=== PATIENT | male | born 1945 | race Caucasian/White ===

== ENCOUNTER 2016-06-30 15:50 | Inpatient (IN) | payer MEDICARE ==
[2016-07-04 02:24] VITALS: BMI 36.8
[2016-07-04] MEDS ORDERED: traMADol HCl 50 MG TAB PO PRN (07:10)
[2016-07-04] MEDS ORDERED: FLU VACC TS2016-17(65YR +) 0.5 ML SYRINGE IM ONE (09:00)
[2016-07-04] MEDS: Multivitamin W/ Minerals 1 TAB PO SCH (09:12)
[2016-07-04] MEDS: Gabapentin 300 MG CAP PO SCH ×3 (09:13→21:30)
[2016-07-04] MEDS: NIFEdipine XL 30 MG TAB PO SCH (09:13)
[2016-07-04] MEDS: Ipratropium Bromide 0.03% Nasal Spray EA NARE SCH ×2 (09:23→21:38)
[2016-07-04] MEDS: traMADol HCl 50 MG TAB PO PRN (11:36)
[2016-07-04] MEDS: Acetaminophen 325 MG TAB PO SCH (21:29)
[2016-07-04] MEDS: Atorvastatin Calcium 40 MG TAB PO SCH (21:29)
[2016-07-05] MEDS: Enoxaparin Sodium 30 MG/0.3 ML SYRINGE SC SCH (05:16)
[2016-07-05] MEDS: NIFEdipine XL 30 MG TAB PO SCH (09:31)
[2016-07-05] MEDS: Multivitamin W/ Minerals 1 TAB PO SCH (09:32)
[2016-07-05] MEDS: Acetaminophen 325 MG TAB PO SCH ×2 (09:32→20:37)
[2016-07-05] MEDS: Gabapentin 300 MG CAP PO SCH ×3 (09:32→20:37)
[2016-07-05] MEDS ORDERED: Fluticasone Propionate Nasal Spray 16 gm Bottle NASAL SCH (13:00)
[2016-07-05] MEDS: Ipratropium Bromide 0.03% Nasal Spray EA NARE SCH (13:15)
[2016-07-05] MEDS ORDERED: Polyethylene Glycol OPTH DROP 15 ML BOT EA EYE PRN (17:15)
[2016-07-05] MEDS: Atorvastatin Calcium 40 MG TAB PO SCH (20:37)
[2016-07-05] MEDS: traMADol HCl 50 MG TAB PO PRN (20:38)
[2016-07-05] MEDS: Artificial Tear Sol 15 ML BOT EA EYE PRN (20:53)
[2016-07-06] MEDS: Enoxaparin Sodium 30 MG/0.3 ML SYRINGE SC SCH (05:30)
[2016-07-06] MEDS: Fluticasone Propionate Nasal Spray 16 gm Bottle NASAL SCH (09:48)
[2016-07-06] MEDS: NIFEdipine XL 30 MG TAB PO SCH (09:49)
[2016-07-06] MEDS: Multivitamin W/ Minerals 1 TAB PO SCH (09:50)
[2016-07-06] MEDS: Gabapentin 300 MG CAP PO SCH ×3 (09:50→20:57)
[2016-07-06] MEDS: Acetaminophen 325 MG TAB PO SCH ×2 (09:51→20:56)
[2016-07-06] MEDS: Cephalexin 250 MG CAP PO SCH (20:56)
[2016-07-06] MEDS: Atorvastatin Calcium 40 MG TAB PO SCH (20:56)
[2016-07-06] MEDS: traMADol HCl 50 MG TAB PO PRN (21:02)
[2016-07-06] MEDS: SYSTANE EA EYE PRN (21:06)
[2016-07-07] MEDS: Enoxaparin Sodium 30 MG/0.3 ML SYRINGE SC SCH (05:58)
[2016-07-07] MEDS: Artificial Tear Sol 15 ML BOT EA EYE PRN ×2 (09:30→21:08)
[2016-07-07] MEDS: Fluticasone Propionate Nasal Spray 16 gm Bottle NASAL SCH (09:32)
[2016-07-07] MEDS: traMADol HCl 50 MG TAB PO PRN ×3 (09:33→20:57)
[2016-07-07] MEDS: Multivitamin W/ Minerals 1 TAB PO SCH (09:34)
[2016-07-07] MEDS: Acetaminophen 325 MG TAB PO SCH ×2 (09:34→20:56)
[2016-07-07] MEDS: NIFEdipine XL 30 MG TAB PO SCH (09:34)
[2016-07-07] MEDS: Cephalexin 250 MG CAP PO SCH ×2 (09:35→20:56)
[2016-07-07] MEDS: Gabapentin 300 MG CAP PO SCH ×3 (09:36→20:57)
[2016-07-07] MEDS: Atorvastatin Calcium 40 MG TAB PO SCH (20:58)
[2016-07-07] MEDS: SYSTANE EA EYE PRN (20:58)
[2016-07-08] MEDS: Acetaminophen 325 MG TAB PO SCH ×2 (08:39→21:16)
[2016-07-08] MEDS: NIFEdipine XL 30 MG TAB PO SCH (08:39)
[2016-07-08] MEDS: Cephalexin 250 MG CAP PO SCH ×2 (08:42→21:16)
[2016-07-08] MEDS: Gabapentin 300 MG CAP PO SCH ×3 (08:42→21:16)
[2016-07-08] MEDS: Fluticasone Propionate Nasal Spray 16 gm Bottle NASAL SCH (08:43)
[2016-07-08] MEDS: Multivitamin W/ Minerals 1 TAB PO SCH (08:43)
[2016-07-08] MEDS: ALBUTEROL INH PRN (08:50)
[2016-07-08] MEDS: traMADol HCl 50 MG TAB PO PRN ×2 (08:54→21:15)
[2016-07-08] MEDS: Artificial Tear Sol 15 ML BOT EA EYE PRN (14:40)
[2016-07-08] MEDS ORDERED: Hydrocortisone Acetate 25 MG Suppository PR PRN (17:48)
[2016-07-08 19:21] LABS: #Basophils 0.1 thou/uL (0.0-0.2); #Eosinphils 0.2 thou/uL (0.0-0.7); #Lymphocytes 1.1 thou/uL (1.20-3.40); #Monocytes 0.5 thou/uL (0.11-0.59); #Neutrophils 4.6 thou/uL (1.40-6.50); %Basophils 1.3 % (0.0-1.0); %Eosinophils 2.4 % (0.0-10.0); %Monocytes 7.7 % (0.0-10.0); Hematocrit 39.9 % (42.0-52.0); Mean Platelet Volume 7.4 fL (7.4-10.4); Red Blood Cell (RBC) Count 4.58 mill/uL (4.70-6.10); White Blood Cell (WBC) Count 6.4 thou/uL (4.8-10.8)
[2016-07-08] MEDS: Atorvastatin Calcium 40 MG TAB PO SCH (21:16)
[2016-07-08] MEDS: SYSTANE EA EYE PRN (21:22)
[2016-07-09] MEDS: Cephalexin 250 MG CAP PO SCH ×2 (10:24→21:37)
[2016-07-09] MEDS: Acetaminophen 325 MG TAB PO SCH ×2 (10:25→21:37)
[2016-07-09] MEDS: traMADol HCl 50 MG TAB PO PRN ×2 (10:26→17:22)
[2016-07-09] MEDS: NIFEdipine XL 30 MG TAB PO SCH (10:27)
[2016-07-09] MEDS: Multivitamin W/ Minerals 1 TAB PO SCH (10:27)
[2016-07-09] MEDS: Gabapentin 300 MG CAP PO SCH ×3 (10:28→21:38)
[2016-07-09] MEDS: Fluticasone Propionate Nasal Spray 16 gm Bottle NASAL SCH (10:30)
[2016-07-09] MEDS: Atorvastatin Calcium 40 MG TAB PO SCH (21:37)
[2016-07-10] MEDS: traMADol HCl 50 MG TAB PO PRN ×2 (01:23→09:17)
[2016-07-10] MEDS: SYSTANE EA EYE PRN ×2 (01:24→20:38)
[2016-07-10] MEDS: Fluticasone Propionate Nasal Spray 16 gm Bottle NASAL SCH (09:14)
[2016-07-10] MEDS: Multivitamin W/ Minerals 1 TAB PO SCH (09:15)
[2016-07-10] MEDS: NIFEdipine XL 30 MG TAB PO SCH (09:15)
[2016-07-10] MEDS: Gabapentin 300 MG CAP PO SCH ×3 (09:15→20:35)
[2016-07-10] MEDS: Cephalexin 250 MG CAP PO SCH ×2 (09:15→20:34)
[2016-07-10] MEDS: Acetaminophen 325 MG TAB PO SCH ×2 (09:16→20:35)
[2016-07-10] MEDS ORDERED: tiZANidine HCl 4 MG TAB PO PRN (12:28)
[2016-07-10] MEDS ORDERED: traMADol HCl 50 MG TAB PO PRN (12:30)
[2016-07-10] MEDS: Artificial Tear Sol 15 ML BOT EA EYE PRN (13:32)
[2016-07-10] MEDS: Baclofen 10 MG TAB PO SCH ×2 (15:14→20:34)
[2016-07-10] MEDS: Famotidine 20 MG TAB PO SCH (20:34)
[2016-07-10] MEDS: Atorvastatin Calcium 40 MG TAB PO SCH (20:34)
[2016-07-11] MEDS: Artificial Tear Sol 15 ML BOT EA EYE PRN ×2 (09:01→14:59)
[2016-07-11] MEDS: Acetaminophen 325 MG TAB PO SCH ×2 (09:03→20:43)
[2016-07-11] MEDS: Fluticasone Propionate Nasal Spray 16 gm Bottle NASAL SCH (09:03)
[2016-07-11] MEDS: Gabapentin 300 MG CAP PO SCH ×3 (09:04→20:43)
[2016-07-11] MEDS: Cephalexin 250 MG CAP PO SCH ×2 (09:04→20:42)
[2016-07-11] MEDS: Famotidine 20 MG TAB PO SCH ×2 (09:04→20:43)
[2016-07-11] MEDS: Multivitamin W/ Minerals 1 TAB PO SCH (09:05)
[2016-07-11] MEDS: NIFEdipine XL 30 MG TAB PO SCH (09:05)
[2016-07-11] MEDS: Baclofen 10 MG TAB PO SCH ×3 (09:06→20:42)
[2016-07-11] MEDS: traMADol HCl 50 MG TAB PO PRN ×3 (09:07→23:08)
[2016-07-11] MEDS: Atorvastatin Calcium 40 MG TAB PO SCH (20:43)
[2016-07-11] MEDS: SYSTANE EA EYE PRN (23:09)
[2016-07-12] MEDS: Acetaminophen 325 MG TAB PO SCH ×2 (09:39→20:36)
[2016-07-12] MEDS: NIFEdipine XL 30 MG TAB PO SCH (09:39)
[2016-07-12] MEDS: Multivitamin W/ Minerals 1 TAB PO SCH (09:39)
[2016-07-12] MEDS: Baclofen 10 MG TAB PO SCH ×3 (09:40→20:35)
[2016-07-12] MEDS: Famotidine 20 MG TAB PO SCH ×2 (09:41→20:36)
[2016-07-12] MEDS: Cephalexin 250 MG CAP PO SCH ×2 (09:41→20:35)
[2016-07-12] MEDS: Gabapentin 300 MG CAP PO SCH ×3 (09:41→20:35)
[2016-07-12] MEDS: Fluticasone Propionate Nasal Spray 16 gm Bottle NASAL SCH (09:42)
[2016-07-12] MEDS ORDERED: Loratadine 10 MG TAB PO PRN (14:32)
[2016-07-12] MEDS: traMADol HCl 50 MG TAB PO PRN (20:36)
[2016-07-12] MEDS: Atorvastatin Calcium 40 MG TAB PO SCH (20:36)
[2016-07-12] MEDS: SYSTANE EA EYE PRN (20:38)
[2016-07-13 06:31] VITALS: BP 160/88; TEMP 98.5
[2016-07-13] MEDS: Multivitamin W/ Minerals 1 TAB PO SCH (09:01)
[2016-07-13] MEDS: Gabapentin 300 MG CAP PO SCH (09:01)
[2016-07-13] MEDS: Cephalexin 250 MG CAP PO SCH (09:01)
[2016-07-13] MEDS: NIFEdipine XL 30 MG TAB PO SCH (09:01)
[2016-07-13] MEDS: Famotidine 20 MG TAB PO SCH (09:01)
[2016-07-13] MEDS: Acetaminophen 325 MG TAB PO SCH (09:02)
[2016-07-13] MEDS: Baclofen 10 MG TAB PO SCH (09:03)
[2016-07-13] MEDS: traMADol HCl 50 MG TAB PO PRN (09:07)
[2016-07-13] MEDS: Fluticasone Propionate Nasal Spray 16 gm Bottle NASAL SCH (09:08)
[2016-07-13] MEDS: Artificial Tear Sol 15 ML BOT EA EYE PRN (09:08)
[2016-07-13] MEDS: ALBUTEROL INH PRN (09:09)
--- NOTE | 2016-07-13 19:30 | DIS ---
DATE OF ADMISSION: 07/04/2016 DATE OF DISCHARGE: 07/13/2016 ADMISSION DIAGNOSES: Physical deconditioning, metabolic encephalopathy and influenza A and B. DISCHARGE DIAGNOSES: Other diagnoses include obesity, history of tobacco abuse , hypertension, hyperlipidemia, chronic lymphocytic leukemia, obstructive sleep apnea on CPAP and chronic back pain. PROCEDURES: No procedures here; however, the patient did have a lumbar puncture prior to his transition to our facility, which was reassuring. HOSPITAL COURSE: A 71-year-old male presented as a transfer patient to participate with physical therapy and occupational therapy secondary to his physically deconditioned state; he arrived from [facility] in [place] where he was diagnosed with influenza A and B along with AMS - metabolic encephalopathy. His confusion quickly improved at our facility here. He was able to work with physical therapy, occupational therapy, and make sufficient progress in order to be able to transition to home. He had no significant setbacks during his stay here. His usual medicines were continued including his pain control medications: He is followed by Dr. Berrios for his history of chronic back pain. His CLL is currently in remission and he is followed by Dr. Gregory. Blood pressure control remained good during his stay. At this time, he had sufficiently met the goals set for him via physical therapy and will continue his PT, OT as an outpatient onward. His primary care provider is formerly Dr. Tobias and he has not re-estabilished with a new PCP: He has been encouraged to follow up with Dr. Tobias's replacement or myself locally. DISPOSITION: He will be discharged to home today with plan and continue as PT, OT as an outpatient. DISCONTINUED MEDICATIONS: Include doxazosin 4 mg p.o. at bedtime, Neurontin 300 mg p.o. t.i.d., DuoNeb p.r.n., Atrovent nasal spine, daily multivitamin, Procardia 60 mg p.o. daily, Zocor 80 mg p.o. at bedtime, tramadol 50 mg 1-2 tablet q.8 hours p.r.n., clonazepam 0.5 mg at bedtime, baclofen, 10 mg p.o. t.i.d., Keflex 500 mg p.o. b.i.d., Artificial Tears, Claritin 10 mg p.o. daily p.r.n. and Anusol-HC 25 mg per rectum b.i.d. p.r.n. MTDD
== END 2016-07-13 14:00 | disposition home or self-care (01) | DRG 193 ==
LOC: BURMED 07-03 21:50
PROVIDERS: ADMIT Family Medicine; ATTEND Family Medicine
PROC: 5A09357 Assistance with Respiratory Ventilation, Less than 24 Consecutive Hours, Continuous Positive Airway Pressure (ICD-10-PCS; principal; 2016-07-03)
PROC: 5A09357 Assistance with Respiratory Ventilation, Less than 24 Consecutive Hours, Continuous Positive Airway Pressure (ICD-10-PCS; 2016-07-04)
PROC: 5A09357 Assistance with Respiratory Ventilation, Less than 24 Consecutive Hours, Continuous Positive Airway Pressure (ICD-10-PCS; 2016-07-05)
PROC: 5A09357 Assistance with Respiratory Ventilation, Less than 24 Consecutive Hours, Continuous Positive Airway Pressure (ICD-10-PCS; 2016-07-06)
PROC: 5A09357 Assistance with Respiratory Ventilation, Less than 24 Consecutive Hours, Continuous Positive Airway Pressure (ICD-10-PCS; 2016-07-12)
PROC: 5A09357 Assistance with Respiratory Ventilation, Less than 24 Consecutive Hours, Continuous Positive Airway Pressure (ICD-10-PCS; 2016-07-13)
DX: J10.1 Influenza due to other identified influenza virus with other respiratory manifestations (principal); G93.41 Metabolic encephalopathy; C91.11 Chronic lymphocytic leukemia of B-cell type in remission; G47.33 Obstructive sleep apnea (adult) (pediatric); E66.9 Obesity, unspecified; E78.5 Hyperlipidemia, unspecified; I10 Essential (primary) hypertension; M51.36 Other intervertebral disc degeneration, lumbar region; K64.9 Unspecified hemorrhoids; J45.909 Unspecified asthma, uncomplicated; M19.90 Unspecified osteoarthritis, unspecified site
CPT/HCPCS: 36415; 85025; G8978-GP-CJ; G8979-GP-CI; G8987-GO-CL; G8988-GO-CI; J1650

== ENCOUNTER 2016-08-07 14:10 | Outpatient (CLI) | payer MEDICARE | END 2016-08-07 14:11 | disposition home or self-care (01) | LOC: BURLAB 14:10 | PROVIDERS: ATTEND Psychiatry & Neurology Neurology | DX: C44.90 Unspecified malignant neoplasm of skin, unspecified (principal); R41.0 Disorientation, unspecified | CPT/HCPCS: 82607; 84207; 84425; 84443 ==

== ENCOUNTER 2016-10-06 14:24 | Outpatient (CLI) | payer MEDICARE ==
--- NOTE | 2016-10-06 18:12 | RAD ---
CHEST TWO VIEWS 10/06/16 Comparison is made with a 06/28/16 study. The Mediport catheter remains in place. The heart is normal in size today. No lobar consolidation or effusion was seen. Degenerative changes are seen in the spine. IMPRESSION: No acute thoracic finding. POS: HOME
== END 2016-10-06 14:25 | disposition home or self-care (01) ==
LOC: BURRAD 14:24
PROVIDERS: ATTEND Family Medicine
DX: Z01.818 Encounter for other preprocedural examination (principal)
CPT/HCPCS: 71020

== ENCOUNTER 2022-10-22 08:57 | Inpatient (IN) | payer MEDICARE ==
[2022-10-22 14:41] VITALS: BMI 23.8
[2022-10-22] MEDS ORDERED: IPRATROPIUM BROMIDE EA NARE PRN (15:48)
[2022-10-22] MEDS ORDERED: HYDROcodone/Acetaminophen 10/325 mg Tablet PO PRN (15:48)
[2022-10-22] MEDS: HYDROcodone/Acetaminophen 10/325 mg Tablet PO PRN ×2 (16:10→20:49)
[2022-10-22] MEDS: Atorvastatin Calcium 40 MG TAB PO SCH (20:45)
[2022-10-22] MEDS: Gabapentin 300 MG CAP PO SCH (20:45)
[2022-10-22] MEDS: Apixaban 5 MG TAB PO SCH (20:46)
[2022-10-22] MEDS: Doxazosin 2 MG TAB PO SCH (20:46)
[2022-10-23] MEDS: HYDROcodone/Acetaminophen 10/325 mg Tablet PO PRN ×4 (08:34→20:51)
[2022-10-23] MEDS: Fluticasone Propionate Nasal Spray 16 gm Bottle NASAL SCH (08:41)
[2022-10-23] MEDS: Losartan 25 MG TAB PO SCH (08:42)
[2022-10-23] MEDS: Apixaban 5 MG TAB PO SCH ×2 (08:43→20:54)
[2022-10-23] MEDS: Loratadine 10 MG TAB PO SCH (08:43)
[2022-10-23] MEDS: Gabapentin 300 MG CAP PO SCH ×3 (08:43→20:54)
[2022-10-23] MEDS: NIFEdipine XL 30 MG TAB PO SCH (08:46)
[2022-10-23] MEDS: Aspirin Chewable 81 MG TAB PO SCH (08:46)
[2022-10-23] MEDS ORDERED: Albuterol 200 PUFF (6.7GM INHALER) INH PRN (17:32)
[2022-10-23] MEDS: Doxazosin 2 MG TAB PO SCH (20:53)
[2022-10-23] MEDS: Atorvastatin Calcium 40 MG TAB PO SCH (20:54)
[2022-10-23] MEDS ORDERED: Atorvastatin Calcium 40 MG TAB PO SCH (21:00)
[2022-10-23] MEDS ORDERED: Albuterol 200 PUFF (6.7GM INHALER) INH SCH (21:00)
[2022-10-23] MEDS: CARBOXYMETHYLCELLULOSE SODIUM EA EYE SCH (21:18)
[2022-10-24] MEDS: HYDROcodone/Acetaminophen 10/325 mg Tablet PO PRN ×3 (08:56→20:46)
[2022-10-24] MEDS: Potassium Chloride 10 MEQ TAB PO SCH (08:56)
[2022-10-24] MEDS: Aspirin Chewable 81 MG TAB PO SCH (08:58)
[2022-10-24] MEDS: Apixaban 5 MG TAB PO SCH ×2 (08:58→20:48)
[2022-10-24] MEDS: Hydrochlorothiazide 25 MG TAB PO SCH (08:58)
[2022-10-24] MEDS: Losartan 25 MG TAB PO SCH (08:58)
[2022-10-24] MEDS: NIFEdipine XL 30 MG TAB PO SCH (08:59)
[2022-10-24] MEDS: Gabapentin 300 MG CAP PO SCH ×3 (09:00→20:48)
[2022-10-24] MEDS: Allopurinol 100 MG TAB PO SCH (09:01)
[2022-10-24] MEDS: Loratadine 10 MG TAB PO SCH (09:01)
[2022-10-24] MEDS: Fluticasone Propionate Nasal Spray 16 gm Bottle NASAL SCH (09:01)
[2022-10-24] MEDS: CARBOXYMETHYLCELLULOSE SODIUM EA EYE SCH ×2 (09:02→20:52)
[2022-10-24] MEDS: Atorvastatin Calcium 40 MG TAB PO SCH (20:48)
[2022-10-24] MEDS: Baclofen 10 MG TAB PO SCH (20:48)
[2022-10-24] MEDS: Doxazosin 2 MG TAB PO SCH (20:48)
[2022-10-24] MEDS ORDERED: clonazePAM 0.5 MG TAB PO PRN (20:52)
[2022-10-25] MEDS: Aspirin Chewable 81 MG TAB PO SCH (08:40)
[2022-10-25] MEDS: Gabapentin 300 MG CAP PO SCH ×3 (08:40→20:44)
[2022-10-25] MEDS: Apixaban 5 MG TAB PO SCH ×2 (08:41→20:45)
[2022-10-25] MEDS: Losartan 25 MG TAB PO SCH (08:42)
[2022-10-25] MEDS: NIFEdipine XL 30 MG TAB PO SCH (08:43)
[2022-10-25] MEDS: Hydrochlorothiazide 25 MG TAB PO SCH (08:44)
[2022-10-25] MEDS: Baclofen 10 MG TAB PO SCH ×3 (08:44→20:46)
[2022-10-25] MEDS: Potassium Chloride 10 MEQ TAB PO SCH (08:44)
[2022-10-25] MEDS: Loratadine 10 MG TAB PO SCH (08:47)
[2022-10-25] MEDS: Allopurinol 100 MG TAB PO SCH (08:47)
[2022-10-25] MEDS: Fluticasone Propionate Nasal Spray 16 gm Bottle NASAL SCH (09:04)
[2022-10-25] MEDS: CARBOXYMETHYLCELLULOSE SODIUM EA EYE SCH ×3 (09:07→20:53)
[2022-10-25] MEDS: HYDROcodone/Acetaminophen 10/325 mg Tablet PO PRN ×3 (09:12→20:42)
[2022-10-25] MEDS: Atorvastatin Calcium 40 MG TAB PO SCH (20:46)
[2022-10-25] MEDS: Doxazosin 2 MG TAB PO SCH (20:46)
[2022-10-26] MEDS: Gabapentin 300 MG CAP PO SCH ×3 (08:54→21:08)
[2022-10-26] MEDS: Baclofen 10 MG TAB PO SCH ×3 (08:56→21:07)
[2022-10-26] MEDS: Aspirin Chewable 81 MG TAB PO SCH (08:56)
[2022-10-26] MEDS: Allopurinol 100 MG TAB PO SCH (08:56)
[2022-10-26] MEDS: Potassium Chloride 10 MEQ TAB PO SCH (08:57)
[2022-10-26] MEDS: Apixaban 5 MG TAB PO SCH ×2 (08:57→21:07)
[2022-10-26] MEDS: Hydrochlorothiazide 25 MG TAB PO SCH (08:57)
[2022-10-26] MEDS: Losartan 25 MG TAB PO SCH (08:57)
[2022-10-26] MEDS: Loratadine 10 MG TAB PO SCH (08:57)
[2022-10-26] MEDS: NIFEdipine XL 30 MG TAB PO SCH (08:58)
[2022-10-26] MEDS: Fluticasone Propionate Nasal Spray 16 gm Bottle NASAL SCH (08:59)
[2022-10-26] MEDS: CARBOXYMETHYLCELLULOSE SODIUM EA EYE SCH ×2 (09:02→21:17)
[2022-10-26] MEDS: HYDROcodone/Acetaminophen 10/325 mg Tablet PO PRN ×3 (09:53→21:24)
[2022-10-26] MEDS: Doxazosin 2 MG TAB PO SCH (21:07)
[2022-10-26] MEDS: Atorvastatin Calcium 40 MG TAB PO SCH (21:07)
[2022-10-27 06:02] VITALS: TEMP 98.2
[2022-10-27] MEDS: HYDROcodone/Acetaminophen 10/325 mg Tablet PO PRN ×2 (09:13→14:33)
[2022-10-27] MEDS: Losartan 25 MG TAB PO SCH (09:15)
[2022-10-27] MEDS: Gabapentin 300 MG CAP PO SCH ×2 (09:16→14:32)
[2022-10-27] MEDS: NIFEdipine XL 30 MG TAB PO SCH (09:16)
[2022-10-27] MEDS: Allopurinol 100 MG TAB PO SCH (09:17)
[2022-10-27] MEDS: Hydrochlorothiazide 25 MG TAB PO SCH (09:17)
[2022-10-27] MEDS: Aspirin Chewable 81 MG TAB PO SCH (09:17)
[2022-10-27] MEDS: Apixaban 5 MG TAB PO SCH (09:17)
[2022-10-27] MEDS: Loratadine 10 MG TAB PO SCH (09:17)
[2022-10-27] MEDS: Potassium Chloride 10 MEQ TAB PO SCH (09:17)
[2022-10-27] MEDS: Baclofen 10 MG TAB PO SCH ×2 (09:18→14:34)
[2022-10-27] MEDS: Fluticasone Propionate Nasal Spray 16 gm Bottle NASAL SCH (09:18)
[2022-10-27] MEDS: CARBOXYMETHYLCELLULOSE SODIUM EA EYE SCH (09:19)
[2022-10-27 09:25] VITALS: BP 150/70
== END 2022-10-27 15:15 | disposition home or self-care (01) | DRG 560 ==
LOC: BURMED 13:55
PROVIDERS: ADMIT Family Medicine; ATTEND Family Medicine
DX: Z47.1 Aftercare following joint replacement surgery (principal); C91.11 Chronic lymphocytic leukemia of B-cell type in remission; I48.91 Unspecified atrial fibrillation; I10 Essential (primary) hypertension; G89.29 Other chronic pain; E78.5 Hyperlipidemia, unspecified; E66.9 Obesity, unspecified; J44.9 Chronic obstructive pulmonary disease, unspecified; Z98.49 Cataract extraction status, unspecified eye; Z98.1 Arthrodesis status; Z91.013 Allergy to seafood; Z88.8 Allergy status to other drugs, medicaments and biological substances; Z87.891 Personal history of nicotine dependence; Z68.23 Body mass index [BMI] 23.0-23.9, adult